=== PATIENT | male | born 1965 | race Caucasian/White ===

== ENCOUNTER → 2017-11-05 | Emergency (ER) | payer OTHER ==
[~2017-11-05] VITALS: Ht 177.8 cm; Wt 83.9 kg
[~2017-11-05] MED LIST: ALLEGRA ALLERG180 MG; IBUPROFEN200 M1; VENTOLIN HFA18 GM
== END | disposition home or self-care (01) ==
LOC: ER 15:31
DX: J45.998 Other asthma (principal); J06.9 Acute upper respiratory infection, unspecified

== ENCOUNTER 2018-02-20 12:32 | Emergency (ER) | payer OTHER ==
[~2018-02-20] VITALS: Ht 180.3 cm; Wt 97.5 kg
[2018-02-20] MEDS ORDERED: PAXIL20 MG (12:56)
[2018-02-20] MEDS ORDERED: KETO10TA2 (12:56)
[2018-02-20] MEDS ORDERED: ATIVAN0.5 M1 (12:57)
[2018-02-20] MEDS ORDERED: NEURONTIN300 MG PO (14:47)
[2018-02-20] MEDS ORDERED: MEDROLPACK PO (14:47)
== END 2018-02-20 16:19 | disposition home or self-care (01) ==
LOC: ER 12:32
DX: M54.89 Other dorsalgia (principal); M54.41 Lumbago with sciatica, right side